=== PATIENT | male | born 1960 | race Caucasian/White ===

== ENCOUNTER → 2017-05-06 | Outpatient (CLI) | payer BC ==
[~2017-05-06] MED LIST: ATOR-24 PO; OXYC-57 PO
== END | disposition home or self-care (01) ==
LOC: C.LABSPEC 14:39
PROVIDERS: ATTEND Internal Medicine
DX: Z12.11 Encounter for screening for malignant neoplasm of colon (principal)

== ENCOUNTER → 2017-06-14 | Day surgery (SDC) | payer BC ==
[2017-05-25 08:06] VITALS: BMI 28.0
--- NOTE | 2017-05-25 08:28 | PAT Medication Instructions ---
Service Date May 25, 2017. Current Home Medication List Atorvastatin (Lipitor), 40 MG PO QAM Medication Instructions For Your Scheduled Surgery - Take the following medications the morning of surgery with a sip of water: Atorvastatin (Lipitor), 40 MG PO QAM If you have any questions please call us at [phone] or [phone] or [phone]
--- NOTE | 2017-05-25 08:59 | DIAGNOSTIC IMAGING REPORT ---
CHEST 2 VIEWS ROUTINE HISTORY: Preop. COMPARISON: None. FINDINGS: The lungs are clear. Cardiac silhouette is normal in size. No pleural effusions. No pneumothorax. IMPRESSION: No acute process. Electronically signed by: Ramírez Ventura M.D. 05/25/2017 8:57 AM Dictated Date/Time: 05/25/2017 8:56 AM
[~2017-06-14] VITALS: Ht 182.9 cm; Wt 93.3 kg
[~2017-06-14] MED LIST changes: +ATROPINE SULFATE 0.1 MG/ML 5ML SYR IV PRN; +EpHEDrine SULFATE INJ 50 MG/ML AMP IV PRN; +FENTANYL CITRATE INJ 50 MCG/1 ML 2 ML VIAL IV PRN; +HYDROmorphone INJ 1 MG/ML SYR IV PRN; +LACTATED RINGER'S 1000ML 1,000 ML IV SCH; +ONDANSETRON INJ 2 MG/ML 2 ML VIAL IV PRN
[2017-06-14 07:25] VITALS: BP 133/70; PULSE 69; TEMP 36.6; O2SAT 96; Ht 182.9 cm; Wt 93.3 kg
--- NOTE | 2017-06-14 08:55 | History & Physical Bridge Note ---
H&P Re-Evaluation Bridge Note: I have examined the patient, reviewed the History & Physical and in the interval since the performance of the History & Physical I have noted the following changes of clinical significance: No changes noted pt shaved himself inguinal area 3 days ago now has small red pustules, will cancel surgery and plan to reschedule near future once area free of inflammation, pt to call office at bedside
== END | disposition home or self-care (01) ==
LOC: C.ACU 06:59
PROVIDERS: ATTEND Surgery
DX: K40.90 Unilateral inguinal hernia, without obstruction or gangrene, not specified as recurrent (principal); S31.119A Laceration without foreign body of abdominal wall, unspecified quadrant without penetration into peritoneal cavity, initial encounter; W26.8XXA Contact with other sharp object(s), not elsewhere classified, initial encounter; E78.00 Pure hypercholesterolemia, unspecified; M54.2 Cervicalgia; Z53.8 Procedure and treatment not carried out for other reasons

== ENCOUNTER → 2017-06-30 | Day surgery (SDC) | payer BC ==
[2017-06-15 09:18] VITALS: BMI 28.0
[~2017-06-30] VITALS: Ht 182.9 cm; Wt 93.3 kg
[~2017-06-30] MED LIST changes: +BACITRACIN 50000 UNIT VIAL ONE; +BUPIVACAINE 0.5 % 5 MG/1 ML MPF 30ML VIAL ONE; +CEFAZOLIN SOD 1 GM VIAL ONE; +DEXAMETHASONE SOD INJ 4 MG/ML VIAL ONE; +FENTANYL CITRATE INJ 50 MCG/1 ML 2 ML VIAL ONE; +GLYCOPYRROLATE INJ 0.2 MG/ML VIAL ONE; +KETOROLAC TROMETHAMINE 30 MG/ML VIAL ONE; +LIDOCAINE HCL 2% 2 ML VIAL (20MG/ML) ONE; +MIDAZOLAM HCL 1 MG/ML 2ML VIAL ONE; +NEOSTIGMINE METHYLSULFATE 5 MG/5 ML SYR ONE; +ONDANSETRON INJ 2 MG/ML 2 ML VIAL ONE; +OXYCODONE/ACETAMINOPHEN 5-325 TAB PO PRN; +PROPOFOL IV EMULSION 10 MG/ML 20 ML VIAL IV ONE; +ROCURONIUM BROMIDE 10 MG/ML 5 ML VIAL IV ONE; +SODIUM CHLORIDE 0.9% 1000ML 1,000 ML IV SCH
[2017-06-30 05:32] VITALS: BP 125/81; PULSE 75; TEMP 37.1; O2SAT 96; Ht 182.9 cm; Wt 93.3 kg
--- NOTE | 2017-06-30 06:20 | History & Physical Bridge Note ---
H&P Re-Evaluation Bridge Note: I have examined the patient, reviewed the History & Physical and in the interval since the performance of the History & Physical I have noted the following changes of clinical significance: No changes noted pt marked area free od any irritation(pt was cancelled for surgery bonita 2 weeks ago do to fact he had shaved himself 3 days before or time and developed folliculitis, was treated with antibiotics and now all resolve at bedside
--- NOTE | 2017-06-30 06:39 | History and Physical ---
History & Physical Date Jun 30, 2017. History of Present Illness The patient is a 57 year old male with complaints of right groin pain was scheduled for surgery bonita 2 weeks ago and surgery cancelled do to fact pt shaved himself bonita 3 days prior and developed folliculitis that weas rx with po antibiotics, seen in office yesterday and thias am area benign and will proceed with open right ing hernia repair with likely mesh placement no change in history or physical or meds last 2 weeks other than antibiotics given for folliculitis Additional History Hepatic Disease: No Endocrine Disorder: No Kidney Disease: No Hypertension: No Heart Disease: No Bleeding Tendencies: No Infectious Diseases: No Allergies Coded Allergies: No Known Allergies (Unverified , 06/15/17) Home Medications Scheduled Atorvastatin (Lipitor), 40 MG PO QAM Physical Examination Skin: warm/dry Eyes: normal inspection ENT: normal ENT inspection Head: normocephalic Neck: supple, no adenopathy, trachea midline Respiratory/Chest: lungs clear Cardiovascular: regular rate, rhythm Abdomen / GI: normal bowel sounds, + pertinent finding (right inguinal hernia) Back: normal inspection Extremities: normal inspection, normal range of motion Genitourinary - Male: normal testicles Diagnosis symptomatic right ing hernia plan open repair Plan of Treatment open right ing hernia repair with likely mesh placement
--- NOTE | 2017-06-30 08:18 | Discharge Instructions ---
Discharge Instructions Date of Service Jun 30, 2017. Admission Reason for Admission: Right Inguinal Hernia Discharge Discharge Diagnosis / Problem: Right Inguinal Hernia Discharge Goals Goal(s): Decrease discomfort, Improve function Activity Recommendations Activity Limitations: as noted below Lifting Limitations: no more than 10 pounds Exercise/Sports Limitations: until after follow-up appointment May Resume Sexual Activity: after follow-up appointment Shower/Bathe: tomorrow Driving or Machine Use: resume 3 days after discharge . Instructions / Follow-Up Instructions / Follow-Up Please continue to ice surgical incision for the next [address] ice directly onto incision. Please follow-up with nursing for staple removal. Please call the office at to make an appointment if you do not have one already. Please call the office with any questions or concerns. Current Hospital Diet Patient's current hospital diet: Discharge Diet Recommended Diet: Regular Diet Procedures Procedures Performed: Open Right Inguinal Hernia Repair with Prolite Mesh, Excision of Lypoma of Cord Pending Studies Studies pending at discharge: yes List of pending studies: Pathology report. Medical Emergencies . Who to Call and When: Medical Emergencies: If at any time you feel your situation is an emergency, please call 911 immediately. . Non-Emergent Contact Non-Emergency issues call your: Primary Care Provider, Surgeon Call Non-Emergent contact if: temperature is above 101.5, your pain is not controlled, wound has increased drainage, wound has increased redness . "Provider Documentation" section prepared by Precious Cunningham. . VTE Core Measure Inpt VTE Proph given/why not?: SCD's [place] Drug Monitoring Program Search Results: patient reviewed within database, no issues identified
--- NOTE | 2017-06-30 08:24 | [facility] Operative Report ---
Operative Report Operative Date Jun 30, 2017. Pre-Operative Diagnosis Right Inguinal Hernia Post-Operative Diagnosis Indirect and Direct Hernia, Lipoma of Cord Procedure(s) Performed Open Right Inguinal Hernia Repair with Prolite Mesh, Excision of Lipoma of Cord Surgeon Dr. Ramos Ruano [employer] [place] Surgeon(s) Precious Cunningham PA-C Estimated Blood Loss 3ml Findings indirect and direct weakness lipoma cord Specimens Permanent: B. Lipoma of Cord Indications right groin pain Description of Procedure dictated confirmation number [id number] I attest to the content of the Intraoperative Record and any orders documented therein. Any exceptions are noted below.
--- NOTE | 2017-06-30 08:42 | OPERATIVE REPORT ---
DATE OF OPERATION: 06/30/2017 PREOPERATIVE DIAGNOSIS: Right inguinal hernia. POSTOPERATIVE DIAGNOSIS: Right direct and indirect hernia and lipoma of the cord. PROCEDURE: Open repair of right direct and indirect inguinal hernia, excision of lipoma and Marlex mesh reinforcement. SURGEON: Dr. Ruano. COMMISSARY ASSISTANT: Precious Cunningham PA-C. SUMMARY: The patient was brought into the operating room under general anesthesia. Right lower quadrant was prepped with Betadine scrubbing solution and properly draped. Systemic antibiotics were given. 0.5% Marcaine without epinephrine was used to infiltrate 2 fingerbreadths medial anterior to the iliac crest and local wheal was raised and went subfascially external oblique. An incision was made parallel to the inguinal ligament, deepened through subcutaneous tissue onto the external oblique. Some subcutaneous vessels were ligated with 2-0 silk. More local was used underneath the external oblique which was incised and opened along the course of its fibers. The nerve which had multiple branches were elevated superiorly on top of hemostats. At this point, the cord and its structures were elevated from the floor and placed on a Caren drain. The patient had a significant amount of fatty tissue in the area. As we freed it up, we were able to identify a small indirect hernia that extended about 4-5 cm into the canal. We opened this, placed a finger and there were no contents, then we resected by ligating the base with 3-0 silk. The patient had a very large lipoma of the cord, which we freed it up from the cord all the way to its base, ligating with 2-0 silk. Another smaller lipoma was similarly excised. At this point, we were able then to visualize the direct defect which we basically oversewed some loose transversalis fascia to get the defect out of the way and then we brought in a sheet of Marlex mesh and probably accommodated the suture to the symphysis pubis, conjoined tendon superiorly. We had the mesh quite lax, the shelving portion the inguinal ligament anteriorly and then we reconstructed the internal ring. We placed the nerve along the cord. The area was checked for hemostasis and appeared satisfactory. We then closed the external oblique on top of the fascia and the repair with 3-0 interrupted silk suture, paying attention that all the sutures were underneath the fascia. Subcutaneous closed with 2-0 Vicryl and víctor for skin edges. Dressing was applied. The procedure was tolerated well by the patient and was taken to recovery room in good condition. I attest to the content of the Intraoperative Record and any orders documented therein. Any exception s are noted below.
--- NOTE | 2017-06-30 08:47 | Anesthesiology Progress Note ---
Anesthesia Post Op Note Date & Time Jun 30, 2017 at 08:47 Vital Signs Pain Intensity: 2 Vital Signs Past 12 Hours Date Time Temp Pulse Resp B/P (MAP) Pulse Ox O2 Delivery O2 Flow Rate FiO2 06/30/17 08:36 59 16 06/30/17 08:36 59 16 96 06/30/17 08:35 114/73 06/30/17 08:31 59 14 06/30/17 08:31 60 14 103/49 100 06/30/17 08:30 60 14 100 06/30/17 08:30 59 14 06/30/17 08:25 59 15 06/30/17 08:25 59 15 119/73 100 06/30/17 08:21 99/65 06/30/17 08:20 57 20 06/30/17 08:20 57 20 100 06/30/17 08:15 54 18 06/30/17 08:15 36.2 56 14 132/83 100 Oxymask 10 06/30/17 08:15 53 18 132/83 100 06/30/17 05:32 37.1 75 18 125/81 (96) 96 Room Air Notes Mental Status: alert / awake / arousable, participated in evaluation Pt Amnestic to Procedure: Yes Nausea / Vomiting: adequately controlled Pain: adequately controlled Airway Patency, RR, SpO2: stable & adequate BP & HR: stable & adequate Hydration State: stable & adequate Anesthetic Complications: no major complications apparent
[2017-06-30 09:00] VITALS: BP 114/75; PULSE 64; TEMP 36.9; O2SAT 98
[2017-06-30 09:30] VITALS: BP 124/72; PULSE 66; TEMP 37; O2SAT 98
[2017-06-30 10:10] VITALS: BP 133/74; PULSE 69; TEMP 36.6; O2SAT 95
== END | disposition home or self-care (01) ==
LOC: C.ACU 05:11
PROVIDERS: ATTEND Surgery
DX: K40.90 Unilateral inguinal hernia, without obstruction or gangrene, not specified as recurrent (principal); D17.6 Benign lipomatous neoplasm of spermatic cord

== ENCOUNTER → 2018-05-23 | Outpatient (CLI) | payer BC ==
[~2018-05-23] MED LIST changes: -ATROPINE SULFATE 0.1 MG/ML 5ML SYR IV PRN; -BACITRACIN 50000 UNIT VIAL ONE; -BUPIVACAINE 0.5 % 5 MG/1 ML MPF 30ML VIAL ONE; -CEFAZOLIN SOD 1 GM VIAL ONE; -DEXAMETHASONE SOD INJ 4 MG/ML VIAL ONE; -EpHEDrine SULFATE INJ 50 MG/ML AMP IV PRN; -FENTANYL CITRATE INJ 50 MCG/1 ML 2 ML VIAL IV PRN; -FENTANYL CITRATE INJ 50 MCG/1 ML 2 ML VIAL ONE; -GLYCOPYRROLATE INJ 0.2 MG/ML VIAL ONE; -HYDROmorphone INJ 1 MG/ML SYR IV PRN; -KETOROLAC TROMETHAMINE 30 MG/ML VIAL ONE; -LACTATED RINGER'S 1000ML 1,000 ML IV SCH; -LIDOCAINE HCL 2% 2 ML VIAL (20MG/ML) ONE; -MIDAZOLAM HCL 1 MG/ML 2ML VIAL ONE; -NEOSTIGMINE METHYLSULFATE 5 MG/5 ML SYR ONE; -ONDANSETRON INJ 2 MG/ML 2 ML VIAL IV PRN; -ONDANSETRON INJ 2 MG/ML 2 ML VIAL ONE; -OXYC-57 PO; -OXYCODONE/ACETAMINOPHEN 5-325 TAB PO PRN; -PROPOFOL IV EMULSION 10 MG/ML 20 ML VIAL IV ONE; -ROCURONIUM BROMIDE 10 MG/ML 5 ML VIAL IV ONE; -SODIUM CHLORIDE 0.9% 1000ML 1,000 ML IV SCH
[2018-05-29 18:13] LABS: FECAL OCCULT BLOOD #1 NEGATIVE (NEGATIVE); FECAL OCCULT BLOOD #2 NEGATIVE (NEGATIVE); FECAL OCCULT BLOOD #3 NEGATIVE (NEGATIVE)
== END | disposition home or self-care (01) ==
LOC: C.LABSPEC 17:18
PROVIDERS: ATTEND Internal Medicine
DX: Z12.11 Encounter for screening for malignant neoplasm of colon (principal)

== ENCOUNTER 2021-01-28 16:31 | Inpatient (IN) ==
--- OUTSIDE RECORDS SUMMARY | 2021-01-28 16:34 | External Medical Summary | Continuity of Care Document ---
:1960 Author Name Neda Foy Address Unavailable Unavailable , Care Team Providers Name Role Phone Binud Foy Unavailable [email or web address] Unavailable Unavailable Unavailable Unavailable Unavailable Assessments Assessed Problems:Unilateral inguinal hernia without obstruction or gangrene Problems Hypercholesterolemia (272.0) (E78.00) Chronic neck pain (723.1) (M54.2) Skin erythema (695.9) (L53.9) Unilateral inguinal hernia without obstruction or gangrene ( 550.90) (K40.90) Allergies and Adverse Reactions No Known Drug Allergies (Allergy) Medications Lipitor 40 MG Oral Tablet; TAKE 1 TABLET DAILY. Start: 17-May-2017 Refills: 0 Procedures History of inguinal hernia repair Status : Completed History of inguinal hernia repair Status : Completed 30-Jun-2017 0:00 Immunizations Immunizations not documented Family History Mother Family history of malignant neoplasm of breast (V16.3) (Z80. 3) Status: Active Social History - Smoking Status Never smoked tobacco Plan of Treatment Planned Observations Planned Goals not documented Results No Known Results Results not documented Encounters Appointment; Ramos Ruano M.D. 08-Aug-2017 13:10 Encounter Diagnosis: Problem not documented
--- OUTSIDE RECORDS SUMMARY | 2021-01-28 16:34 | External Medical Summary | Continuity of Care Document ---
:1960 Author Name Neda Foy Address Unavailable Unavailable , Care Team Providers Name Role Phone Bindu Foy Unavailable [email or web address] Unavailable Unavailable Unavailable Unavailable Unavailable Assessments Assessed Problems:Unilateral inguinal hernia without obstruction or gangrene Problems Chronic neck pain (723.1) (M54.2) Hypercholesterolemia (272.0) (E78.00) Unilateral inguinal hernia without obstruction or gangrene ( 550.90) (K40.90) Skin erythema (695.9) (L53.9) Allergies and Adverse Reactions No Known Drug [...]
[2021-01-28] MEDS ORDERED: SODIUM CHLORIDE 0.9% 1000ML 2,000 ML IV ONE (19:02)
--- NOTE | 2021-01-28 19:07 | Emergency Department Note ---
Impression & Plan Sepsis, Acute Lyme disease, Hypoxia, Viral URI with cough ED Provider Note NAME: UTE BURCH AGE: 60 SEX: M : 1960 ARRIVES VIA: Walk-In INFORMANT: Patient ED PROVIDER(S): Duc Flood DO CHIEF COMPLAINT: fever and cough HPI: Patient is a 60-year-old male with a past medical history of hyperlipidemia that presents to the ER for fevers which have been present since this past Tuesday. They have been a high as 102. He notes with that he has felt weak and rundown. He feels very tired. He denies any headache or change in vision. He does feel a little nasally congested. No chest pain and or shortness of breath. He admits to a persistent cough. No belly pain, nausea, vomiting or diarrhea. No dysuria, urgency, or frequency. The notes that he looks short of breath but he notes that he feels very tired when he is up and around doing anything. Has been taking Tylenol to help with the fevers. Fevers have been persistent for the past 4 days. Prior to this he had symptoms around January 09 which lasted for couple days and then resolved. Patient did also have a recent tick bite. ROS: See above HPI for pertinent positives & negatives. A total of 10 systems reviewed and were otherwise negative. PAST MEDICAL HISTORY:See Below PAST SURGICAL HISTORY:See Below FAMILY HISTORY:See Below SOCIAL HISTORY:See Below HOME MEDICATIONS:See Below ALLERGIES:See Below VITALS:See Below PHYSICAL EXAMINATION: GENERAL: Sitting up in bed, alert, well appearing, well nourished, no distress, non-toxic EYE EXAM: normal conjunctiva. OROPHARYNX: mask in place NECK: supple, no nuchal rigidity, no adenopathy, non-tender LUNGS: Clear to auscultation. Normal chest wall mechanics HEART: Tachycardic, S1 normal and S2 normal ABDOMEN: abdomen soft, non-tender, normo-active bowel sounds, no masses, no rebound or guarding. BACK: Back is symmetrical on inspection and there is no deformity, no midline tenderness, no CVA tenderness. SKIN: no rashes and no bruising UPPER EXTREMITIES: upper extremities are grossly normal. LOWER EXTREMITIES: No pitting edema. Calves are good bilateral NEURO EXAM: Normal sensorium, cranial nerves II-XII grossly intact, normal speech, no gross weakness of arms, no gross weakness of legs. MEDICAL DECISION MAKING: Patient is a 60-year-old male who presents the ER for fever, myalgias arth ralgias cough some mild shortness of breath. IV was established blood work was obtained. Labs showed no significant leukocytosis or anemia. D-dimer was elevated at 1500. BMP with mild hyponatremia. LFTs with slightly elevated AST. T bili slightly elevated 1.3. Lipase was normal. Procalcitonin was normal. UA was contaminated. Lyme IgM was positive. He was given 2 L IV fluids. He was given IV Rocephin. He was monitored in the ER. Pulse ox was fairly persistently 90%. With this the fever and persistent tachycardia I discussed case with hospitalist for further evaluation and he was admitted. Triage Nursing notes reviewed. Limited review of prior medical records performed Vital Signs: reviewed and remarkable for tachy and HTN Differential diagnosis: Differential diagnosis includes etiologies such as sepsis, UTI, pneumonia, me tabolic, electrolyte abnormalities, cardiac sources, intracerebral event, toxicologic, neurological, as well as others were entertained. ER treatment provided: See below Diagnostics interpreted by me: ECG: Sinus tachycardia rate 105 Normal axis No PVCs QTC 417 Cardiac Monitoring: An order was placed for continuous cardiac monitoring. The monitor shows a rate of 115 with sinus rhythm. Laboratory studies: As stated above and show below. Imaging studies: CT angio chest was unremarkable Portable AP upright 1 view the chest was unremarkable Consultation(s): This is Dr. Андрей Bishop for further evaluation Procedures: none Critical Care: None Past Med/Surg History Medical History (Updated 01/28/21 @ 23:37 by Duc Flood DO) BPH w urinary obs/LUTS Hyperlipidemia Social History Smoking Status: Never smoker Feels Safe at Home: Yes Allergies Allergies Allergy/AdvReac Type Severity Reaction Status Date / Time No Known Allergies Allergy Verified 01/28/21 20:28 Home Meds Home Medications Medication Instructions Recorded Confirmed atorvastatin 40 mg PO HS 01/28/21 01/28/21 ferrous gluconate 324 mg PO HS 01/28/21 01/28/21 tamsulosin 0.4 mg PO HS 01/28/21 01/28/21 Results & Data (ED) Vital Signs Vital Signs - 24 hr 01/28/21 16:35 01/28/21 19:05 01/28/21 19:18 Temperature 36.5 C Temperature Source Temporal Artery Scan Pulse Rate 111 H 103 H Pulse Rate from SpO2 Sensor 102 H Pulse Rhythm Regular Respiratory Rate 19 23 Respiratory Effort / Characteristics Non-Labored Spontaneous Respiratory Depth Normal Respiratory Pattern Regular Blood Pressure 141/75 H 144/92 H Blood Pressure Mean 97 109 Pulse Oximetry 96 93 94 Oxygen Delivery Method Room Air Room Air Sepsis Recent Fever Within 48 Hours Yes Sepsis New/Unexplained Change in Mental Status No Sepsis Action Taken by Nursing No Action Required 01/28/21 20:00 01/28/21 21:00 01/28/21 22:00 Temperature Temperature Source Pulse Rate 103 H 101 H 100 H Pulse Rate from SpO2 Sensor 104 H 102 H 100 H Pulse Rhythm Respiratory Rate 32 H 40 H 39 H Respiratory Effort / Characteristics Respiratory Depth Respiratory Pattern Blood Pressure 141/86 H 128/84 133/81 Blood Pressure Mean 104 98 98 Pulse Oximetry 95 93 92 Oxygen Delivery Method Sepsis Recent Fever Within 48 Hours Sepsis New/Unexplained Change in Mental Status Sepsis Action Taken by Nursing 01/28/21 23:00 Temperature Temperature Source Pulse Rate 91 H Pulse Rate from SpO2 Sensor 92 H Pulse Rhythm Respiratory Rate 28 H Respiratory Effort / Characteristics Respiratory Depth Respiratory Pattern Blood Pressure 127/78 Blood Pressure Mean 94 Pulse Oximetry 92 Oxygen Delivery Method Room Air Sepsis Recent Fever Within 48 Hours Sepsis New/Unexplained Change in Mental Status Sepsis Action Taken by Nursing Laboratory Data Result diagrams: 01/28/21 19:09 01/28/21 19:09 Lab Results 01/28/21 01/28/21 01/28/21 Range/Units 19:09 19:09 19:09 WBC 7.18 (4.8-10.8) K/uL RBC 4.94 (4.7-6.1) M/uL Hgb 13.9 L (14.0-18.0) g/dL Hct 40.6 L (42-52) % MCV 82.2 (80-100) fL MCH 28.1 (25-34) pg MCHC 34.2 (32-36) g/dL RDW Std Deviation 41.2 (36.4-46.3) fL RDW Coeff of Elaine 13.6 (11.5-14.5) % Plt Count 113 L (130-400) K/uL MPV 10.7 H (7.4-10.4) fL Immature Gran % (Auto) 0.3 % Neut % (Auto) 61.8 % Lymph % (Auto) 26.3 % [place] % (Auto) 10.9 % Eos % (Auto) 0.0 % Baso % (Auto) 0.7 % Neut # (Auto) 4.44 (1.4-6.5) K/uL Lymph # (Auto) 1.89 (1.2-3.4) K/uL [place] # (Auto) 0.78 H (0.11-0.59) K/uL Eos # (Auto) 0.00 (0-0.5) K/uL Baso # (Auto) 0.05 (0-0.2) K/uL Immature Gran # (Auto) 0.02 (0.00-0.02) K/uL D-Dimer 1470 H* (0-500) ug/L FEU Sodium 132 L (136-145) mmol/L Potassium 3.6 (3.5-5.1) mmol/L Chloride 100 (98-107) mmol/L Carbon Dioxide 25 (21-32) mmol/L Anion Gap 8.0 (3-11) BUN 15 (7-18) mg/dl Creatinine 0.98 (0.6-1.4) mg/dl Est Cr Clr Drug Dosing 97.2 ml/min Est GFR ( Amer) 97.4 Est GFR (Non-Af Amer) 84.1 BUN/Creatinine Ratio 15.3 (10-20) Glucose 127 H (70-99) mg/dl Lactate (0.4-2.0) mmol/L Calcium 8.5 (8.5-10.1) mg/dl Total Bilirubin 1.3 H (0.2-1) mg/dl AST 83 H (15-37) U/L ALT 73 (12-78) U/L Alkaline Phosphatase 131 H (45-117) U/L Troponin I < 0.015 (0-0.045) ng/ml Total Protein 7.5 (6.4-8.2) gm/dl Albumin 3.2 L (3.4-5.0) gm/dl Globulin 4.3 H (2.5-4.0) gm/dl Albumin/Globulin Ratio 0.7 L (0.9-2) Lipase 136 (73-393) U/L Procalcitonin (0-0.5) ng/ml Urine Color Urine Appearance (Clear) Urine pH (4.5-7.5) Ur Specific Abrams (1.000-1.030) Urine Protein (Negative) Urine Glucose (UA) (Negative) Urine Ketones (Negative) Urine Blood (Negative) Urine Nitrite (Negative) Urine Bilirubin (Negative) Urine Urobilinogen (Negative) Ur Leukocyte Esterase (Negative) Urine WBC (Auto) (0-5) /hpf Urine RBC (Auto) (0-4) /hpf U Hyaline Cast (Auto) (0-5) /lpf U Epithel Cells (Auto) (0-5) /lpf Urine Bacteria (Auto) (Negative) Lyme Disease IgG Ab (Negative) Lyme Disease IgM Ab (Negative) COVID-19 Eval Order SARS-CoV-2 (PCR) (Negative) Influenza Type A (PCR) (Neg) Influenza Type B (PCR) (Neg) RSV (RT-PCR) (Neg) 01/28/21 01/28/21 01/28/21 Range/Units 19:09 19:09 19:09 WBC (4.8-10.8) K/uL RBC (4.7-6.1) M/uL Hgb (14.0-18.0) g/dL Hct (42-52) % MCV (80-100) fL MCH (25-34) pg MCHC (32-36) g/dL RDW Std Deviation (36.4-46.3) fL RDW Coeff of Elaine (11.5-14.5) % Plt Count (130-400) K/uL MPV (7.4-10.4) fL Immature Gran % (Auto) % Neut % (Auto) % Lymph % (Auto) % [place] % (Auto) % Eos % (Auto) % Baso % (Auto) % Neut # (Auto) (1.4-6.5) K/uL Lymph # (Auto) (1.2-3.4) K/uL [place] # (Auto) (0.11-0.59) K/uL Eos # (Auto) (0-0.5) K/uL Baso # (Auto) (0-0.2) K/uL Immature Gran # (Auto) (0.00-0.02) K/uL D-Dimer (0-500) ug/L FEU Sodium (136-145) mmol/L Potassium (3.5-5.1) mmol/L Chloride (98-107) mmol/L Carbon Dioxide (21-32) mmol/L Anion Gap (3-11) BUN (7-18) mg/dl Creatinine (0.6-1.4) mg/dl Est Cr Clr Drug Dosing ml/min Est GFR ( Amer) Est GFR (Non-Af Amer) BUN/Creatinine Ratio (10-20) Glucose (70-99) mg/dl Lactate 1.5 (0.4-2.0) mmol/L Calcium (8.5-10.1) mg/dl Total Bilirubin (0.2-1) mg/dl AST (15-37) U/L ALT (12-78) U/L Alkaline Phosphatase (45-117) U/L Troponin I (0-0.045) ng/ml Total Protein (6.4-8.2) gm/dl Albumin (3.4-5.0) gm/dl Globulin (2.5-4.0) gm/dl Albumin/Globulin Ratio (0.9-2) Lipase (73-393) U/L Procalcitonin 0.40 (0-0.5) ng/ml Urine Color Dark Yellow Urine Appearance Clear (Clear) Urine pH 6.0 (4.5-7.5) Ur Specific Abrams 1.023 (1.000-1.030) Urine Protein 2+ H (Negative) Urine Glucose (UA) Negative (Negative) Urine Ketones Negative (Negative) Urine Blood 3+ H (Negative) Urine Nitrite Negative (Negative) Urine Bilirubin 1+ H (Negative) Urine Urobilinogen Positive H (Negative) Ur Leukocyte Esterase Negative (Negative) Urine WBC (Auto) 1-5 (0-5) /hpf Urine RBC (Auto) 5-10 H (0-4) /hpf U Hyaline Cast (Auto) 1-5 (0-5) /lpf U Epithel Cells (Auto) 10-20 H (0-5) /lpf Urine Bacteria (Auto) Negative (Negative) Lyme Disease IgG Ab (Negative) Lyme Disease IgM Ab (Negative) COVID-19 Eval Order SARS-CoV-2 (PCR) (Negative) Influenza Type A (PCR) (Neg) Influenza Type B (PCR) (Neg) RSV (RT-PCR) (Neg) 01/28/21 01/28/21 01/28/21 Range/Units 19:09 19:15 19:15 WBC (4.8-10.8) K/uL RBC (4.7-6.1) M/uL Hgb (14.0-18.0) g/dL Hct (42-52) % MCV (80-100) fL MCH (25-34) pg MCHC (32-36) g/dL RDW Std Deviation (36.4-46.3) fL RDW Coeff of Elaine (11.5-14.5) % Plt Count (130-400) K/uL MPV (7.4-10.4) fL Immature Gran % (Auto) % Neut % (Auto) % Lymph % (Auto) % [place] % (Auto) % Eos % (Auto) % Baso % (Auto) % Neut # (Auto) (1.4-6.5) K/uL Lymph # (Auto) (1.2-3.4) K/uL [place] # (Auto) (0.11-0.59) K/uL Eos # (Auto) (0-0.5) K/uL Baso # (Auto) (0-0.2) K/uL Immature Gran # (Auto) (0.00-0.02) K/uL D-Dimer (0-500) ug/L FEU Sodium (136-145) mmol/L Potassium (3.5-5.1) mmol/L Chloride (98-107) mmol/L Carbon Dioxide (21-32) mmol/L Anion Gap (3-11) BUN (7-18) mg/dl Creatinine (0.6-1.4) mg/dl Est Cr Clr Drug Dosing ml/min Est GFR ( Amer) Est GFR (Non-Af Amer) BUN/Creatinine Ratio (10-20) Glucose (70-99) mg/dl Lactate (0.4-2.0) mmol/L Calcium (8.5-10.1) mg/dl Total Bilirubin (0.2-1) mg/dl AST (15-37) U/L ALT (12-78) U/L Alkaline Phosphatase (45-117) U/L Troponin I (0-0.045) ng/ml Total Protein (6.4-8.2) gm/dl Albumin (3.4-5.0) gm/dl Globulin (2.5-4.0) gm/dl Albumin/Globulin Ratio (0.9-2) Lipase (73-393) U/L Procalcitonin (0-0.5) ng/ml Urine Color Urine Appearance (Clear) Urine pH (4.5-7.5) Ur Specific Abrams (1.000-1.030) Urine Protein (Negative) Urine Glucose (UA) (Negative) Urine Ketones (Negative) Urine Blood (Negative) Urine Nitrite (Negative) Urine Bilirubin (Negative) Urine Urobilinogen (Negative) Ur Leukocyte Esterase (Negative) Urine WBC (Auto) (0-5) /hpf Urine RBC (Auto) (0-4) /hpf U Hyaline Cast (Auto) (0-5) /lpf U Epithel Cells (Auto) (0-5) /lpf Urine Bacteria (Auto) (Negative) Lyme Disease IgG Ab Positive A (Negative) Lyme Disease IgM Ab Positive A (Negative) COVID-19 Eval Order CovFluRsv at [facility] SARS-CoV-2 (PCR) NEGATIVE (Negative) Influenza Type A (PCR) Negative (Neg) Influenza Type B (PCR) Negative (Neg) RSV (RT-PCR) Negative (Neg) Administered Medications Discontinued Medications Acetaminophen (Acetaminophen 325 Mg Tab) 650 mg PO NOW STA Stop: 01/28/21 21:14 Last Admin: 01/28/21 21:56 Dose: 650 mg Documented by: [id number] Sodium Chloride (Nss 1000ml) 2,000 mls @ 999 mls/hr IV .Q2H1M ONE Stop: 01/28/21 21:02 Last Infusion: 01/28/21 21:22 Dose: 0 mls/hr Documented by: [id number] Admin: 01/28/21 19:18 Dose: 999 mls/hr Documented by: [id number] Dexamethasone 6 mg/ Syringe 1.5 mls @ 1 mls/min IV ONE ONE Stop: 01/28/21 21:14 Last Admin: 01/28/21 21:57 Dose: 1 mls/min Documented by: [id number] Ceftriaxone Sodium (Rocephin) 1,000 mg in 50 mls @ 100 mls/hr IV NOW STA Stop: 01/28/21 21:42 Last Infusion: 01/28/21 22:29 Dose: 0 mls/hr Documented by: [id number] Admin: 01/28/21 21:57 Dose: 100 mls/hr Documented by: [id number] Ceftriaxone Sodium (Rocephin) 1,000 mg in 50 mls @ 100 mls/hr IV NOW STA Stop: 01/28/21 22:31 Last Infusion: 01/28/21 22:58 Dose: 0 mls/hr Documented by: [id number] Admin: 01/28/21 22:29 Dose: 100 mls/hr Documented by: [id number] Ioversol (Optiray 320 125ml) 119 ml IV ONCE ONE Stop: 01/28/21 20:07 Last Admin: 01/28/21 20:06 Dose: 119 ml Documented by: [id number] Tamsulosin HCl (Tamsulosin Hcl 0.4 Mg Cap) 0.4 mg PO NOW STA Stop: 01/28/21 22:08 Last Admin: 01/28/21 22:27 Dose: 0.4 mg Documented by: [id number] Imaging Data Radiologist's Impression: Chest X-Ray 01/28/21 18:54 XR chest 1V portable CLINICAL HISTORY: Atypical chest pain. COMPARISON STUDY: Chest radiograph May 25, 2017. FINDINGS: Lung volumes are normal. There is no pneumothorax or pleural effusion. There is no consolidation or evidence for pulmonary edema. There is mild cardiomegaly. IMPRESSION: 1. No acute cardiopulmonary findings. 2. Mild cardiomegaly. ACT 112: Negative or not required by law. Electronically signed by: Stefano Vega M.D. 01/28/2021 7:30 PM Chest CTA 01/28/21 19:53 CT ANGIOGRAPHY OF THE CHEST, PULMONARY EMBOLUS PROTOCOL CLINICAL HISTORY: +dd sob and fever COMPARISON STUDY: Chest radiograph May 25, 2017 and January 28, 2021. TECHNIQUE: Following IV administration of 119 mL of Optiray-320, helical axial images of the chest were obtained utilizing the pulmonary embolus protocol. Max imal intensity projections and sagittal and coronal reformats were viewed on an independent 3D workstation. IV contrast was administered without complication. Automated exposure control was utilized for the study. A dose lowering technique was utilized adhering to the principles of ALARA. CT DOSE: 544.59 mGy.cm FINDINGS: No pulmonary emboli are identified. There is no thoracic aortic dissection. The heart is mildly enlarged. Trace bilateral pleural effusions are noted. There is no pneumothorax. No enlarged axillary, mediastinal or hilar lymph nodes are present. Note is made of a low attenuation 2.8 cm left lobe thyroid nodule. Central airways are patent. No consolidation is identified to suggest pneumonia. Minimal subpleural groundglass opacities reflect atelectasis. There is subtle interlobular septal thickening. A few hepatic lesions favor cysts. Mild splenomegaly is partially imaged. IMPRESSION: 1. No pulmonary emboli identified. 2. Mild cardiomegaly with trace bilateral pleural effusions and minimal interstitial pulmonary edema. 3. Mild splenomegaly, partially imaged on this exam. ACT 112: Negative or not required by law. Electronically signed by: Stefano Vega M.D. 01/28/2021 8:25 PM Discharge Plan Visit Data Chief Complaint: Illness Stated Complaint: FEVER LAST 4 DAYS, COUGH, BODY ACHE ED Provider: Duc Flood Discharge Problem: Sepsis, Acute Lyme disease, Hypoxia, Viral URI with cough Discharge Instructions Interventions: ED Discharge Assessment Last Done: 01/28/21 23:21 Forms Stand Al[facility] Prescriptions Prescriptions: No Action atorvastatin 40 mg tablet 40 mg PO HS RF: 0 tamsulosin 0.4 mg capsule 0.4 mg PO HS RF: 0 ferrous gluconate 324 mg (37.5 mg iron) tablet 324 mg PO HS RF: 0 Discharge Problem: Sepsis Qualifiers: Sepsis type: sepsis due to unspecified organism Sepsis acute organ dysfunction status: unspecified Qualified Code(s): A41.9 - Sepsis, unspecified organism
[2021-01-28 19:24] LABS: Appearance Urine Clear (Clear); Bacteria Urine Automated Negative (Negative); Blood Urine 3+ (Negative); Color Urine Dark Yellow; Glucose Urine UA Negative (Negative); Ketones Urine Negative (Negative); Leukocyte Esterase Urine Negative (Negative); Nitrite Urine Negative (Negative); Protein Urine 2+ (Negative); Specific Gravity Urine 1.023 (1.000-1.030); Urobilinogen Urine Positive (Negative)
[2021-01-28 19:25] LABS: Bilirubin Urine 1+ (Negative)
[2021-01-28 19:29] LABS: Basophils # (auto) 0.05 K/uL (0-0.2); Basophils % (auto) 0.7 %; Hematocrit (blood only) 40.6 % (42-52); Hemoglobin 13.9 g/dL (14.0-18.0); Immature Granulocytes # (auto) 0.02 K/uL (0.00-0.02); Immature Granulocytes % (auto) 0.3 %; Lymphocytes # (auto) 1.89 K/uL (1.2-3.4); Lymphocytes % (auto) 26.3 %; Mean Corpuscular Hemoglobin 28.1 pg (25-34); Mean Corpuscular Hgb Conc 34.2 g/dL (32-36); Mean Corpuscular Volume 82.2 fL (80-100); Mean Platelet Volume 10.7 fL (7.4-10.4); Monocytes # (auto) 0.78 K/uL (0.11-0.59); Monocytes % (auto) 10.9 %; Neutrophils # (auto) 4.44 K/uL (1.4-6.5); Neutrophils % (auto) 61.8 %; Platelet Count 113 K/uL (130-400); RDW Coefficient of Variation 13.6 % (11.5-14.5); RDW Standard Deviation 41.2 fL (36.4-46.3); Red Blood Count 4.94 M/uL (4.7-6.1); White Blood Count 7.18 K/uL (4.8-10.8)
--- NOTE | 2021-01-28 19:32 | XRay Report ---
XR chest 1V portable CLINICAL HISTORY: Atypical chest pain. COMPARISON STUDY: Chest radiograph May 25, 2017. FINDINGS: Lung volumes are normal. There is no pneumothorax or pleural effusion. There is no consolid ation or evidence for pulmonary edema. There is mild cardiomegaly. IMPRESSION: 1. No acute cardiopulmonary findings. 2. Mild cardiomegaly. ACT 112: Negative or not required by law. Electronically signed by: Stefano Vega M.D. 01/28/2021 7:30 PM
[2021-01-28 19:39] LABS: Alanine Aminotransferase 73 U/L (12-78); Albumin Level 3.2 gm/dl (3.4-5.0); Aspartate Aminotransferase 83 U/L (15-37); BUN Creatinine Ratio 15.3 (10-20); Blood Urea Nitrogen 15 mg/dl (7-18); Calcium 8.5 mg/dl (8.5-10.1); Carbon Dioxide 25 mmol/L (21-32); Chloride 100 mmol/L (98-107); Creatinine Clr Calc Pharmacy 97.2 ml/min; Est GFR (African American) 97.4; Est GFR (Non-African American) 84.1; Glucose 127 mg/dl (70-99); Lipase 136 U/L (73-393); Potassium 3.6 mmol/L (3.5-5.1); Sodium 132 mmol/L (136-145)
[2021-01-28 19:44] LABS: Albumin Globulin Ratio 0.7 (0.9-2); Alkaline Phosphatase 131 U/L (45-117); Bilirubin,Total 1.3 mg/dl (0.2-1); Globulin 4.3 gm/dl (2.5-4.0); Total Protein 7.5 gm/dl (6.4-8.2); Troponin I < 0.015 ng/ml (0-0.045)
[2021-01-28 19:48] LABS: D Dimer 1470 ug/L FEU (0-500)
[2021-01-28] MEDS ORDERED: OPTIRAY 320 125ml IV ONE (20:06)
[2021-01-28 20:10] LABS: Influenza A virus by PCR Negative (Neg); Influenza B virus by PCR Negative (Neg); RSV by PCR Negative (Neg); SARS CoV2 RNA(COVID-19) InHosp NEGATIVE (Negative)
--- NOTE | 2021-01-28 20:26 | CT Scan Report ---
CT ANGIOGRAPHY OF THE CHEST, PULMONARY EMBOLUS PROTOCOL CLINICAL HISTORY: +dd sob and fever COMPARISON STUDY: Chest radiograph May 25, 2017 and January 28, 2021. TECHNIQUE: Following IV administration of 119 mL of Optiray-320, helical axial images of the chest we re obtained utilizing the pulmonary embolus protocol. Maximal intensity projections and sagittal and coronal reformats were viewed on an independent 3D workstation. IV contrast was administered withou t complication. Automated exposure control was utilized for the study. A dose lowering technique wa s utilized adhering to the principles of ALARA. CT DOSE: 544.59 mGy.cm FINDINGS: No pulmonary emboli are identified. There is no thoracic aortic dissection. The heart is m ildly enlarged. Trace bilateral pleural effusions are noted. There is no pneumothorax. No enlarged ax illary, mediastinal or hilar lymph nodes are present. Note is made of a low attenuation 2.8 cm left l obe thyroid nodule. Central airways are patent. No consolidation is identified to suggest pneumonia. Minimal subpleural groundglass opacities reflect atelectasis. There is subtle interlobular septal thi ckening. A few hepatic lesions favor cysts. Mild splenomegaly is partially imaged. IMPRESSION: 1. No pulmonary emboli identified. 2. Mild cardiomegaly with trace bilateral pleural effusions and minimal interstitial pulmonary edema. 3. Mild splenomegaly, partially imaged on this exam. ACT 112: Negative or not required by law. Electronically signed by: Stefano Vega M.D. 01/28/2021 8:25 PM
[2021-01-28] MEDS ORDERED: dexAMETHasone 6 MG in SYRINGE 0 ML IV ONE (21:13)
[2021-01-28] MEDS ORDERED: ACETAMINOPHEN 325 MG TAB PO STA (21:13)
[2021-01-28] MEDS ORDERED: cefTRIAXone SODIUM 1,000 MG/50 ML BAG IV STA ×2 (21:13→22:02)
[2021-01-28 22:05] LABS: Lyme Ab IgM w/WB Rflx Positive (Negative)
[2021-01-28 22:06] LABS: Lyme Ab IgG w/WB Rflx Positive (Negative)
--- NOTE | 2021-01-28 22:06 | History & Physical Report ---
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 Present on Admission?: Yes (2) BPH w urinary obs/LUTS: Continue tamsulosin 0.4 mg p.o. bedtime. We will follow urinalysis urine culture and sensitivity Present on Admission?: Yes (3) Hyperlipidemia: Continue atorvastatin Present on Admission?: Yes (4) Transaminitis: AST 83, total bilirubin 1.3, albumin 3.2 Present on Admission?: Yes (5) Thrombocytopenia: Platelets 113 upon admission Present on Admission?: Yes (6) Elevated d-dimer: CT angiography negative for PE Present on Admission?: Yes (7) Bronchitis: Placed on ceftriaxone 2 g IV daily, levofloxacin 500 mg IV daily. Duonebs every 4 hours while awake and every 2 hours when necessary. Present on Admission?: Yes (8) Splenomegaly: Monitor platelet levels Present on Admission?: Yes History of Present Illness Chief Complaint: The patient presents to the emergency department with temperature over the past 4 days, dyspnea on exertion, and generalized fatigue Primary Care Provider: Adair Kolb MD The patient is a 60-year-old male with a past medical history including hyperlipidemia and BPH, who presents to the emergency department with the above symptoms. He reports that 3 weeks ago he was bit by a tick, and then 12 hours after that developed initial symptoms of an elevated temperature and generalized malaise. He has been having temperatures on and off since that time, but more consistently over the past 4 days, sometimes resistant to Tylenol. Because of worsening issues with temperatures, and dyspnea on exertion noted by his , he presents to the ED for assessment. In the emergency department, COVID-19 testing was negative, platelet count was 113, AST was 83, and D-dimer 1470. Chest x-ray showed fluffy infiltrates bilaterally, right greater than left, and CT angiography was negative for PE but did also show mild splenomegaly. Allergies Allergy/AdvReac Type Severity Reaction Status Date / Time No Known Allergies Allergy Verified 01/28/21 20:28 Home Medications Medication Instructions Recorded Confirmed Type atorvastatin 40 mg PO HS 01/28/21 01/28/21 History ferrous gluconate 324 mg PO HS 01/28/21 01/28/21 History tamsulosin 0.4 mg PO HS 01/28/21 01/28/21 History Past Med/Surg History Medical History (Updated 01/28/21 @ 22:45 by Андрей Stone MD) BPH w urinary obs/LUTS Hyperlipidemia Social History Smoking Status: Never smoker Feels Safe at Home: Yes Review of Systems Review of Systems: The patient denies chest pain, palpitations, lower extremity swelling, sore throat, chills, nausea, vomiting, diarrhea , constipation, abdominal pain, pelvic pain, blood in urine or stool, dysuria, urinary frequency or urgency, lightheadedness, dizziness, headache, memory loss, loss of consciousness, rash, abnormal bruising or bleeding, imbalance, focal weakness, numbness or tingling in arms or legs, back or neck pain, or night sweats. The review of systems is otherwise negative other than for that already noted above, and at least 10 systems have been reviewed. Physical Exam Physical Exam: The patient is awake, alert and oriented 3, well developed and well nourished, appears mildly diaphoretic, normocephalic and atraumatic, lying in bed and in no acute distress. HEENT--PERRL, EOMI, mucous membranes and oropharynx dry. Neck--supple. No JVD. No bruits. Thyroid normal, trachea midline, no adenopathy. Heart--normal S1 and S2. No murmurs, rubs or gallops. Lungs--few coarse breath sounds, right greater than left. No respiratory distress, no accessory muscle use. Abdomen--normal bowel sounds and soft. Nontender. Nondistended. Extremities--no cyanosis or clubbing. No edema. Dermatologic--normal skin turgor, normal color, no abnormal lymph nodes, no rash. Neurologic--cranial nerves II through XII grossly intact. Rheumatologic--normal range of motion. Psychiatric--normal affect. Results & Data Results & Data ([facility]) Vital Signs (Past 12 Hours) Vital Signs Temp Pulse Resp BP Pulse Ox 01/28/21 21:00 101 H 40 H 128/84 93 01/28/21 20:00 103 H 32 H 141/86 H 95 01/28/21 19:18 94 01/28/21 19:05 103 H 23 144/92 H 93 01/28/21 16:35 97.7 F 111 H 19 141/75 H 96 Laboratory Results Laboratory Results WBC 7.18 K/uL (4.8-10.8) 01/28/21 19:09 RBC 4.94 M/uL (4.7-6.1) 01/28/21 19:09 Hgb 13.9 g/dL (14.0-18.0) L 01/28/21 19:09 Hct 40.6 % (42-52) L 01/28/21 19:09 MCV 82.2 fL (80-100) 01/28/21 19:09 MCH 28.1 pg (25-34) 01/28/21 19:09 MCHC 34.2 g/dL (32-36) 01/28/21 19:09 RDW Std Deviation 41.2 fL (36.4-46.3) 01/28/21 19:09 RDW Coeff of Elaine 13.6 % (11.5-14.5) 01/28/21 19:09 Plt Count 113 K/uL (130-400) L 01/28/21 19:09 MPV 10.7 fL (7.4-10.4) H 01/28/21 19:09 Immature Gran % (Auto) 0.3 % 01/28/21 19:09 Neut % (Auto) 61.8 % 01/28/21 19:09 Lymph % (Auto) 26.3 % 01/28/21 19:09 [place] % (Auto) 10.9 % 01/28/21 19:09 Eos % (Auto) 0.0 % 01/28/21 19:09 Baso % (Auto) 0.7 % 01/28/21 19:09 Neut # (Auto) 4.44 K/uL (1.4-6.5) 01/28/21 19:09 Lymph # (Auto) 1.89 K/uL (1.2-3.4) 01/28/21 19:09 [place] # (Auto) 0.78 K/uL (0.11-0.59) H 01/28/21 19:09 Eos # (Auto) 0.00 K/uL (0-0.5) 01/28/21 19:09 Baso # (Auto) 0.05 K/uL (0-0.2) 01/28/21 19:09 Immature Gran # (Auto) 0.02 K/uL (0.00-0.02) 01/28/21 19:09 D-Dimer 1470 ug/L FEU (0-500) H* 01/28/21 19:09 Sodium 132 mmol/L (136-145) L 01/28/21 19:09 Potassium 3.6 mmol/L (3.5-5.1) 01/28/21 19:09 Chloride 100 mmol/L (98-107) 01/28/21 19:09 Carbon Dioxide 25 mmol/L (21-32) 01/28/21 19:09 Anion Gap 8.0 (3-11) 01/28/21 19:09 BUN 15 mg/dl (7-18) 01/28/21 19:09 Creatinine 0.98 mg/dl (0.6-1.4) 01/28/21 19:09 Est Cr Clr Drug Dosing 97.2 ml/min 01/28/21 19:09 Est GFR ( Amer) 97.4 01/28/21 19:09 Est GFR (Non-Af Amer) 84.1 01/28/21 19:09 BUN/Creatinine Ratio 15.3 (10-20) 01/28/21 19:09 Glucose 127 mg/dl (70-99) H 01/28/21 19:09 Lactate 1.5 mmol/L (0.4-2.0) 01/28/21 19:09 Calcium 8.5 mg/dl (8.5-10.1) 01/28/21 19:09 Total Bilirubin 1.3 mg/dl (0.2-1) H 01/28/21 19:09 AST 83 U/L (15-37) H 01/28/21 19:09 ALT 73 U/L (12-78) 01/28/21 19:09 Alkaline Phosphatase 131 U/L (45-117) H 01/28/21 19:09 Troponin I < 0.015 ng/ml (0-0.045) 01/28/21 19:09 Total Protein 7.5 gm/dl (6.4-8.2) 01/28/21 19:09 Albumin 3.2 gm/dl (3.4-5.0) L 01/28/21 19:09 Globulin 4.3 gm/dl (2.5-4.0) H 01/28/21 19:09 Albumin/Globulin Ratio 0.7 (0.9-2) L 01/28/21 19:09 Lipase 136 U/L (73-393) 01/28/21 19:09 Procalcitonin 0.40 ng/ml (0-0.5) 01/28/21 19:09 Urine Color Dark Yellow 01/28/21 19:09 Urine Appearance Clear (Clear) 01/28/21 19:09 Urine pH 6.0 (4.5-7.5) 01/28/21 19:09 Ur Specific [place] 1.023 (1.000-1.030) 01/28/21 19:09 Urine Protein 2+ (Negative) H 01/28/21 19:09 Urine Glucose (UA) Negative (Negative) 01/28/21 19:09 Urine Ketones Negative (Negative) 01/28/21 19:09 Urine Blood 3+ (Negative) H 01/28/21 19:09 Urine Nitrite Negative (Negative) 01/28/21 19:09 Urine Bilirubin 1+ (Negative) H 01/28/21 19:09 Urine Urobilinogen Positive (Negative) H 01/28/21 19:09 Ur Leukocyte Esterase Negative (Negative) 01/28/21 19:09 Urine WBC (Auto) 1-5 /hpf (0-5) 01/28/21 19:09 Urine RBC (Auto) 5-10 /hpf (0-4) H 01/28/21 19:09 U Hyaline Cast (Auto) 1-5 /lpf (0-5) 01/28/21 19:09 U Epithel Cells (Auto) 10-20 /lpf (0-5) H 01/28/21 19:09 Urine Bacteria (Auto) Negative (Negative) 01/28/21 19:09 Lyme Disease IgG Ab Positive (Negative) A 01/28/21 19:09 Lyme Disease IgM Ab Positive (Negative) A 01/28/21 19:09 COVID-19 Eval Order CovFluRsv at [facility] 01/28/21 19:15 SARS-CoV-2 (PCR) NEGATIVE (Negative) 01/28/21 19:15 Influenza Type A (PCR) Negative (Neg) 01/28/21 19:15 Influenza Type B (PCR) Negative (Neg) 01/28/21 19:15 RSV (RT-PCR) Negative (Neg) 01/28/21 19:15 Impressions Chest X-Ray 01/28/21 18:54 XR chest 1V portable CLINICAL HISTORY: Atypical chest pain. COMPARISON STUDY: Chest radiograph May 25, 2017. FINDINGS: Lung volumes are normal. There is no pneumothorax or pleural effusion. There is no consolidation or evidence for pulmonary edema. There is mild c ardiomegaly. IMPRESSION: 1. No acute cardiopulmonary findings. 2. Mild cardiomegaly. ACT 112: Negative or not required by law. Electronically signed by: Stefano Vega M.D. 01/28/2021 7:30 PM Chest CTA 01/28/21 19:53 CT ANGIOGRAPHY OF THE CHEST, PULMONARY EMBOLUS PROTOCOL CLINICAL HISTORY: +dd sob and fever COMPARISON STUDY: Chest radiograph May 25, 2017 and January 28, 2021. TECHNIQUE: Following IV administration of 119 mL of Optiray-320, helical axial images of the chest were obtained utilizing the pulmonary embolus protocol. Maximal intensity projections and sagittal and coronal reformats were viewed on an independent 3D workstation. IV contrast was administered without complication. Automated exposure control was utilized for the study. A dose lowering technique was utilized adhering to the principles of ALARA. CT DOSE: 544.59 mGy.cm FINDINGS: No pulmonary emboli are identified. There is no thoracic aortic dissection. The heart is mildly enlarged. Trace bilateral pleural effusions are noted. There is no pneumothorax. No enlarged axillary, mediastinal or hilar lymph nodes are present. Note is made of a low attenuation 2.8 cm left lobe thyroid nodule. Central airways are patent. No consolidation is identified to suggest pneumonia. Minimal subpleural groundglass opacities reflect atelectasis. There is subtle interlobular septal thickening. A few hepatic lesions favor cysts. Mild splenomegaly is partially imaged. IMPRESSION: 1. No pulmonary emboli identified. 2. Mild cardiomegaly with trace bilateral pleural effusions and minimal interstitial pulmonary edema. 3. Mild splenomegaly, partially imaged on this exam. ACT 112: Negative or not required by law. Electronically signed by: Stefano Vega M.D. 01/28/2021 8:25 PM Code Status & VTE Plan Code Status Full code VTE Prophylaxis Plan VTE Prophylaxis will be ordered: Yes PG Care Time/CCT Total # of Minutes Spent Total Time Spent with Patient: Total time spent is greater than 50% in coordination of care (as documented) at patient's floor/unit and/or counseling patient: Coding Level of Care Code 39958 Initial Inpt Care Lvl 3 Diagnoses Febrile illness R50.9 BPH w urinary obs/LUTS N40.1; N13.8 Hyperlipidemia E78.5 Transaminitis R74.01 Thrombocytopenia D69.6 Elevated d-dimer R79.89 Bronchitis J40 Splenomegaly R16.1
[2021-01-28] MEDS ORDERED: TAMSULOSIN HCL 0.4 MG CAP PO STA (22:07)
--- NOTE | 2021-01-28 23:48 | History & Physical Report ---
Date of Service January 28, 2021 History of Present Illness Primary Care Provider: Adair Kolb MD Allergies Allergy/AdvReac Type Severity Reaction Status Date / Time No Known Allergies Allergy Verified 01/28/21 20:28 Home Medications Medication Instructions Recorded Confirmed Type atorvastatin 40 mg PO HS 01/28/21 01/28/21 History ferrous gluconate 324 mg PO HS 01/28/21 01/28/21 History tamsulosin 0.4 mg PO HS 01/28/21 01/28/21 History Past Med/Surg History Medical History (Updated 01/28/21 @ 23:37 by Duc Flood DO) BPH w urinary obs/LUTS Hyperlipidemia Social History Smoking Status: Never smoker Feels Safe at Home: Yes Results & Data Results & Data ([facility]) Vital Signs (Past 12 Hours) Vital Signs Temp Pulse Resp BP Pulse Ox 01/28/21 23:00 91 H 28 H 127/78 92 01/28/21 22:00 100 H 39 H 133/81 92 01/28/21 21:00 101 H 40 H 128/84 93 01/28/21 20:00 103 H 32 H 141/86 H 95 01/28/21 19:18 94 01/28/21 19:05 103 H 23 144/92 H 93 01/28/21 16:35 97.7 F 111 H 19 141/75 H 96 Code Status & VTE Plan VTE Prophylaxis Plan VTE Prophylaxis will be ordered: Yes PG Care Time/CCT Total # of Minutes Spent Total Time Spent with Patient: Total time spent is greater than 50% in coordination of care (as documented) at patient's floor/unit and/or counseling patient: Coding
[2021-01-29] MEDS ORDERED: ONDANSETRON INJ 2 MG/ML 2 ML VIAL IV PRN (00:18)
[2021-01-29] MEDS ORDERED: ACETAMINOPHEN 325 MG TAB PO PRN (00:18)
[2021-01-29] MEDS: ENOXAPARIN INJ 40 MG/0.4 ML SYR SQ SCH (01:10)
[2021-01-29] MEDS: NSS + 20MEQ KCL 20 MEQ/1,000 ML BAG IV SCH ×2 (01:11→06:17)
[2021-01-29] MEDS ORDERED: levoFLOXacin/D5W 500 MG/100 ML BAG IV SCH (02:00)
[2021-01-29] MEDS ORDERED: ALBUT/IPRATROP 3MG/0.5MG NEB 3 ML VIAL NEB SCH (07:00)
[2021-01-29 07:02] LABS: Basophils # (auto) 0.01 K/uL (0-0.2); Basophils % (auto) 0.2 %; Hematocrit (blood only) 38.8 % (42-52); Hemoglobin 13.3 g/dL (14.0-18.0); Immature Granulocytes # (auto) 0.02 K/uL (0.00-0.02); Immature Granulocytes % (auto) 0.4 %; Lymphocytes # (auto) 1.53 K/uL (1.2-3.4); Lymphocytes % (auto) 26.9 %; Mean Corpuscular Hemoglobin 28.4 pg (25-34); Mean Corpuscular Hgb Conc 34.3 g/dL (32-36); Mean Corpuscular Volume 82.7 fL (80-100); Mean Platelet Volume 10.6 fL (7.4-10.4); Monocytes % (auto) 8.8 %; Neutrophils # (auto) 3.63 K/uL (1.4-6.5); Neutrophils % (auto) 63.7 %; Platelet Count 116 K/uL (130-400); RDW Standard Deviation 42.3 fL (36.4-46.3); Red Blood Count 4.69 M/uL (4.7-6.1); White Blood Count 5.69 K/uL (4.8-10.8)
[2021-01-29 07:28] LABS: Albumin Level 2.8 gm/dl (3.4-5.0); BUN Creatinine Ratio 14.4 (10-20); Calcium 8.1 mg/dl (8.5-10.1); Creatinine Clr Calc Pharmacy 128.7 ml/min
[2021-01-29 07:42] LABS: Albumin Globulin Ratio 0.7 (0.9-2); Bilirubin,Total 0.7 mg/dl (0.2-1); Globulin 4.1 gm/dl (2.5-4.0); Total Protein 6.9 gm/dl (6.4-8.2)
--- NOTE | 2021-01-29 07:58 | Hospitalist Progress Note ---
Date of Service January 29, 2021 Assessment & Plan (1) Anaplasmosis: * Combination of general symptoms, febrile illness, elevated AST, low platelets, mild splenomegaly is most consistent with anaplasmosis rather than Lyme disease * Lyme IgG and IgM positive -- WB pending * Anaplasmosis smear + for inclusion bodies * Continues on Doxycycline but will discontinue Levaquin/Ceftriaxone * Bcx ngtd -- monitor * afebrile since admission * Continue to monitor --> consider switch to PO Doxy tomorrow (rx to be sent to [facility]) * Labs in AM (2) Febrile illness: * Febrile illness- * Main differential is bronchitis, Lyme disease, anaplasmosis, prostatitis and others * COVID-19 testing is negative * Combination of general symptoms, febrile illness, elevated AST, low platelets, mild splenomegaly is most consistent with anaplasmosis rather than Lyme disea se -- see above * Empiric treatment for all above with ceftriaxone 2 g IV daily and levofloxacin 500 mg IV daily --> d/c Levaquin and Rocephin and continuing on Doxy alone. * WBC, afebrile since admission (3) BPH w urinary obs/LUTS: * Continue tamsulosin 0.4 mg p.o. bedtime. * We will follow urinalysis urine culture and sensitivity -- UA not appearing infected * Continue to monitor UO -- acceptable 0.68ml/kg/hr * UO acceptable (4) Hyperlipidemia: * Continue atorvastatin (5) Transaminitis: * AST 83, total bilirubin 1.3, albumin 3.2 --> improving Tbili 0.7, AST 70, ALT 62, alk phos 110 * Continue to monitor (6) Thrombocytopenia: * Platelets 113 upon admission --> 116 (7) Elevated d-dimer: * CT angiography negative for PE (8) Bronchitis: * Placed on ceftriaxone 2 g IV daily, levofloxacin 500 mg IV daily. * Duonebs every 4 hours while awake and every 2 hours when necessary. * 93% on RA -- lungs clear, duonebs changed to prn (9) Splenomegaly: * Monitor platelet levels Dispo: continued inpatient stay possible d/c tomorrow on PO Doxy as above Admission and Anticipated Discharge Date Admission Date: January 28, 2021 Subjective Patient evaluated this morning. Feeling much better. Eating/drinking without issue. Still with slight cough but overall improved. No shortness of breath. No fever, chills, chest pain, abdominal pain, nausea or vomiting or dysuria at this time. Discussed + Anaplasmosis and will continue on Doxycycline alone with hopeful d/c tomorrow. Rx to be sent to [facility] Questions/concerns addressed at this time. Review of Systems Review of Systems: All systems reviewed & are unremarkable except as noted in HPI & below Physical Exam Constitutional: WD/WN, vitals as above cooperative and comfortable; no acute distress Eyes: + anicteric sclerae and PERRL ENMT: slightly dry mm --> improving Neck: trachea midline, no thyromegaly Respiratory: normal respiratory effort, lungs clear to auscultation (faint coarse breath sounds R>L) Auscultation: no wheezes Cardiovascular: RRR, no murmur, no edema Gastrointestinal (Abdomen): normal bowel sounds, soft, nontender, no hepatosplenomegaly Musculoskeletal: no cyanosis or clubbing, extremities motor strength 5/5 Skin: warm, moist Neurologic: patellar DTR's 2+ bilat, sensation intact and PERRL, EOMI, accommodation nl, no face palsy, no dysarthria Psychiatric: A+Ox3, euthymic affect Results & Data Results & Data ([facility] [place]) Vital Signs (Past 12 Hours) Vital Signs Temp Pulse Pulse Resp BP BP Pulse Ox 01/29/21 07:35 36.8 C 76 18 118/76 93 01/29/21 07:20 82 16 96 01/29/21 07:00 94 H 01/29/21 02:16 86 01/29/21 00:30 37.4 C 89 18 114/73 92 01/28/21 23:00 91 H 28 H 127/78 92 01/28/21 22:00 100 H 39 H 133/81 92 01/28/21 21:00 101 H 40 H 128/84 93 01/28/21 20:00 103 H 32 H 141/86 H 95 Laboratory Results 01/29/21 01/29/21 01/28/21 Range/Units 06:34 06:34 19:15 WBC 5.69 (4.8-10.8) K/uL RBC 4.69 L (4.7-6.1) M/uL Hgb 13.3 L (14.0-18.0) g/dL Hct 38.8 L (42-52) % MCV 82.7 (80-100) fL MCH 28.4 (25-34) pg MCHC 34.3 (32-36) g/dL RDW Std Deviation 42.3 (36.4-46.3) fL RDW Coeff of Elaine 14.0 (11.5-14.5) % Plt Count 116 L (130-400) K/uL MPV 10.6 H (7.4-10.4) fL Immature Gran % (Auto) 0.4 % Neut % (Auto) 63.7 % Lymph % (Auto) 26.9 % [place] % (Auto) 8.8 % Eos % (Auto) 0.0 % Baso % (Auto) 0.2 % Neut # (Auto) 3.63 (1.4-6.5) K/uL Lymph # (Auto) 1.53 (1.2-3.4) K/uL [place] # (Auto) 0.50 (0.11-0.59) K/uL Eos # (Auto) 0.00 (0-0.5) K/uL Baso # (Auto) 0.01 (0-0.2) K/uL Immature Gran # (Auto) 0.02 (0.00-0.02) K/uL D-Dimer (0-500) ug/L FEU Sodium 138 (136-145) mmol/L Potassium 4.0 (3.5-5.1) mmol/L Chloride 107 (98-107) mmol/L Carbon Dioxide 24 (21-32) mmol/L Anion Gap 7.0 (3-11) BUN 11 (7-18) mg/dl Creatinine 0.74 (0.6-1.4) mg/dl Est Cr Clr Drug Dosing 128.7 ml/min Est GFR ( Amer) 117.0 Est GFR (Non-Af Amer) 101.0 BUN/Creatinine Ratio 14.4 (10-20) Glucose 124 H (70-99) mg/dl Lactate (0.4-2.0) mmol/L Calcium 8.1 L (8.5-10.1) mg/dl Total Bilirubin 0.7 D (0.2-1) mg/dl AST 70 H (15-37) U/L ALT 62 (12-78) U/L Alkaline Phosphatase 110 (45-117) U/L Troponin I (0-0.045) ng/ml Total Protein 6.9 (6.4-8.2) gm/dl Albumin 2.8 L (3.4-5.0) gm/dl Globulin 4.1 H (2.5-4.0) gm/dl Albumin/Globulin Ratio 0.7 L (0.9-2) Lipase (73-393) U/L Procalcitonin (0-0.5) ng/ml Urine Color Urine Appearance (Clear) Urine pH (4.5-7.5) Ur Specific [place] (1.000-1.030) Urine Protein (Negative) Urine Glucose (UA) (Negative) Urine Ketones (Negative) Urine Blood (Negative) Urine Nitrite (Negative) Urine Bilirubin (Negative) Urine Urobilinogen (Negative) Ur Leukocyte Esterase (Negative) Urine WBC (Auto) (0-5) /hpf Urine RBC (Auto) (0-4) /hpf U Hyaline Cast (Auto) (0-5) /lpf U Epithel Cells (Auto) (0-5) /lpf Urine Bacteria (Auto) (Negative) Anaplasma Smear Anaplasma Comment Lyme Disease IgG Ab (Negative) Lyme IgG (Western Blot) Lyme IgG 18 kDa Band Lyme IgG 23 kDa Band Lyme IgG 28 kDa Band Lyme IgG 30 kDa Band Lyme IgG 39 kDa Band Lyme IgG 41 kDa Band Lyme IgG 45 kDa Band Lyme IgG 58 kDa Band Lyme IgG 66 kDa Band Lyme IgG 93 kDa Band Lyme IgM Ab (WB) Lyme Disease IgM Ab (Negative) Lyme IgM 23 kDa Band Lyme IgM 39 kDa Band Lyme IgM 41 kDa Band COVID-19 Eval Order SARS-CoV-2 (PCR) NEGATIVE (Negative) Influenza Type A (PCR) Negative (Neg) Influenza Type B (PCR) Negative (Neg) RSV (RT-PCR) Negative (Neg) 01/28/21 01/28/21 01/28/21 Range/Units 19:15 19:09 19:09 WBC (4.8-10.8) K/uL RBC (4.7-6.1) M/uL Hgb (14.0-18.0) g/dL Hct (42-52) % MCV (80-100) fL MCH (25-34) pg MCHC (32-36) g/dL RDW Std Deviation (36.4-46.3) fL RDW Coeff of Elaine (11.5-14.5) % Plt Count (130-400) K/uL MPV (7.4-10.4) fL Immature Gran % (Auto) % Neut % (Auto) % Lymph % (Auto) % [place] % (Auto) % Eos % (Auto) % Baso % (Auto) % Neut # (Auto) (1.4-6.5) K/uL Lymph # (Auto) (1.2-3.4) K/uL [place] # (Auto) (0.11-0.59) K/uL Eos # (Auto) (0-0.5) K/uL Baso # (Auto) (0-0.2) K/uL Immature Gran # (Auto) (0.00-0.02) K/uL D-Dimer (0-500) ug/L FEU Sodium (136-145) mmol/L Potassium (3.5-5.1) mmol/L Chloride (98-107) mmol/L Carbon Dioxide (21-32) mmol/L Anion Gap (3-11) BUN (7-18) mg/dl Creatinine (0.6-1.4) mg/dl Est Cr Clr Drug Dosing ml/min Est GFR ( Amer) Est GFR (Non-Af Amer) BUN/Creatinine Ratio (10-20) Glucose (70-99) mg/dl Lactate (0.4-2.0) mmol/L Calcium (8.5-10.1) mg/dl Total Bilirubin (0.2-1) mg/dl AST (15-37) U/L ALT (12-78) U/L Alkaline Phosphatase (45-117) U/L Troponin I (0-0.045) ng/ml Total Protein (6.4-8.2) gm/dl Albumin (3.4-5.0) gm/dl Globulin (2.5-4.0) gm/dl Albumin/Globulin Ratio (0.9-2) Lipase (73-393) U/L Procalcitonin (0-0.5) ng/ml Urine Color Urine Appearance (Clear) Urine pH (4.5-7.5) Ur Specific [place] (1.000-1.030) Urine Protein (Negative) Urine Glucose (UA) (Negative) Urine Ketones (Negative) Urine Blood (Negative) Urine Nitrite (Negative) Urine Bilirubin (Negative) Urine Urobilinogen (Negative) Ur Leukocyte Esterase (Negative) Urine WBC (Auto) (0-5) /hpf Urine RBC (Auto) (0-4) /hpf U Hyaline Cast (Auto) (0-5) /lpf U Epithel Cells (Auto) (0-5) /lpf Urine Bacteria (Auto) (Negative) Anaplasma Smear Cancelled Anaplasma Comment Lyme Disease IgG Ab (Negative) Lyme IgG (Western Blot) Pending Lyme IgG 18 kDa Band Pending Lyme IgG 23 kDa Band Pending Lyme IgG 28 kDa Band Pending Lyme IgG 30 kDa Band Pending Lyme IgG 39 kDa Band Pending Lyme IgG 41 kDa Band Pending Lyme IgG 45 kDa Band Pending Lyme IgG 58 kDa Band Pending Lyme IgG 66 kDa Band Pending Lyme IgG 93 kDa Band Pending Lyme IgM Ab (WB) Pending Lyme Disease IgM Ab (Negative) Lyme IgM 23 kDa Band Pending Lyme IgM 39 kDa Band Pending Lyme IgM 41 kDa Band Pending COVID-19 Eval Order CovFluRsv at [facility] SARS-CoV-2 (PCR) (Negative) Influenza Type A (PCR) (Neg) Influenza Type B (PCR) (Neg) RSV (RT-PCR) (Neg) 01/28/21 01/28/21 01/28/21 Range/Units 19:09 19:09 19:09 WBC (4.8-10.8) K/uL RBC (4.7-6.1) M/uL Hgb (14.0-18.0) g/dL Hct (42-52) % MCV (80-100) fL MCH (25-34) pg MCHC (32-36) g/dL RDW Std Deviation (36.4-46.3) fL RDW Coeff of Elaine (11.5-14.5) % Plt Count (130-400) K/uL MPV (7.4-10.4) fL Immature Gran % (Auto) % Neut % (Auto) % Lymph % (Auto) % [place] % (Auto) % Eos % (Auto) % Baso % (Auto) % Neut # (Auto) (1.4-6.5) K/uL Lymph # (Auto) (1.2-3.4) K/uL [place] # (Auto) (0.11-0.59) K/uL Eos # (Auto) (0-0.5) K/uL Baso # (Auto) (0-0.2) K/uL Immature Gran # (Auto) (0.00-0.02) K/uL D-Dimer (0-500) ug/L FEU Sodium (136-145) mmol/L Potassium (3.5-5.1) mmol/L Chloride (98-107) mmol/L Carbon Dioxide (21-32) mmol/L Anion Gap (3-11) BUN (7-18) mg/dl Creatinine (0.6-1.4) mg/dl Est Cr Clr Drug Dosing ml/min Est GFR ( Amer) Est GFR (Non-Af Amer) BUN/Creatinine Ratio (10-20) Glucose (70-99) mg/dl Lactate 1.5 (0.4-2.0) mmol/L Calcium (8.5-10.1) mg/dl Total Bilirubin (0.2-1) mg/dl AST (15-37) U/L ALT (12-78) U/L Alkaline Phosphatase (45-117) U/L Troponin I (0-0.045) ng/ml Total Protein (6.4-8.2) gm/dl Albumin (3.4-5.0) gm/dl Globulin (2.5-4.0) gm/dl Albumin/Globulin Ratio (0.9-2) Lipase (73-393) U/L Procalcitonin (0-0.5) ng/ml Urine Color Dark Yellow Urine Appearance Clear (Clear) Urine pH 6.0 (4.5-7.5) Ur Specific [place] 1.023 (1.000-1.030) Urine Protein 2+ H (Negative) Urine Glucose (UA) Negative (Negative) Urine Ketones Negative (Negative) Urine Blood 3+ H (Negative) Urine Nitrite Negative (Negative) Urine Bilirubin 1+ H (Negative) Urine Urobilinogen Positive H (Negative) Ur Leukocyte Esterase Negative (Negative) Urine WBC (Auto) 1-5 (0-5) /hpf Urine RBC (Auto) 5-10 H (0-4) /hpf U Hyaline Cast (Auto) 1-5 (0-5) /lpf U Epithel Cells (Auto) 10-20 H (0-5) /lpf Urine Bacteria (Auto) Negative (Negative) Anaplasma Smear Anaplasma Comment Lyme Disease IgG Ab Positive A (Negative) Lyme IgG (Western Blot) Lyme IgG 18 kDa Band Lyme IgG 23 kDa Band Lyme IgG 28 kDa Band Lyme IgG 30 kDa Band Lyme IgG 39 kDa Band Lyme IgG 41 kDa Band Lyme IgG 45 kDa Band Lyme IgG 58 kDa Band Lyme IgG 66 kDa Band Lyme IgG 93 kDa Band Lyme IgM Ab (WB) Lyme Disease IgM Ab Positive A (Negative) Lyme IgM 23 kDa Band Lyme IgM 39 kDa Band Lyme IgM 41 kDa Band COVID-19 Eval Order SARS-CoV-2 (PCR) (Negative) Influenza Type A (PCR) (Neg) Influenza Type B (PCR) (Neg) RSV (RT-PCR) (Neg) 01/28/21 01/28/21 01/28/21 Range/Units 19:09 19:09 19:09 WBC (4.8-10.8) K/uL RBC (4.7-6.1) M/uL Hgb (14.0-18.0) g/dL Hct (42-52) % MCV (80-100) fL MCH (25-34) pg MCHC (32-36) g/dL RDW Std Deviation (36.4-46.3) fL RDW Coeff of Elaine (11.5-14.5) % Plt Count (130-400) K/uL MPV (7.4-10.4) fL Immature Gran % (Auto) % Neut % (Auto) % Lymph % (Auto) % [place] % (Auto) % Eos % (Auto) % Baso % (Auto) % Neut # (Auto) (1.4-6.5) K/uL Lymph # (Auto) (1.2-3.4) K/uL [place] # (Auto) (0.11-0.59) K/uL Eos # (Auto) (0-0.5) K/uL Baso # (Auto) (0-0.2) K/uL Immature Gran # (Auto) (0.00-0.02) K/uL D-Dimer 1470 H* (0-500) ug/L FEU Sodium 132 L (136-145) mmol/L Potassium 3.6 (3.5-5.1) mmol/L Chloride 100 (98-107) mmol/L Carbon Dioxide 25 (21-32) mmol/L Anion Gap 8.0 (3-11) BUN 15 (7-18) mg/dl Creatinine 0.98 (0.6-1.4) mg/dl Est Cr Clr Drug Dosing 97.2 ml/min Est GFR ( Amer) 97.4 Est GFR (Non-Af Amer) 84.1 BUN/Creatinine Ratio 15.3 (10-20) Glucose 127 H (70-99) mg/dl Lactate (0.4-2.0) mmol/L Calcium 8.5 (8.5-10.1) mg/dl Total Bilirubin 1.3 H (0.2-1) mg/dl AST 83 H (15-37) U/L ALT 73 (12-78) U/L Alkaline Phosphatase 131 H (45-117) U/L Troponin I < 0.015 (0-0.045) ng/ml Total Protein 7.5 (6.4-8.2) gm/dl Albumin 3.2 L (3.4-5.0) gm/dl Globulin 4.3 H (2.5-4.0) gm/dl Albumin/Globulin Ratio 0.7 L (0.9-2) Lipase 136 (73-393) U/L Procalcitonin 0.40 (0-0.5) ng/ml Urine Color Urine Appearance (Clear) Urine pH (4.5-7.5) Ur Specific [place] (1.000-1.030) Urine Protein (Negative) Urine Glucose (UA) (Negative) Urine Ketones (Negative) Urine Blood (Negative) Urine Nitrite (Negative) Urine Bilirubin (Negative) Urine Urobilinogen (Negative) Ur Leukocyte Esterase (Negative) Urine WBC (Auto) (0-5) /hpf Urine RBC (Auto) (0-4) /hpf U Hyaline Cast (Auto) (0-5) /lpf U Epithel Cells (Auto) (0-5) /lpf Urine Bacteria (Auto) (Negative) Anaplasma Smear Anaplasma Comment Lyme Disease IgG Ab (Negative) Lyme IgG (Western Blot) Lyme IgG 18 kDa Band Lyme IgG 23 kDa Band Lyme IgG 28 kDa Band Lyme IgG 30 kDa Band Lyme IgG 39 kDa Band Lyme IgG 41 kDa Band Lyme IgG 45 kDa Band Lyme IgG 58 kDa Band Lyme IgG 66 kDa Band Lyme IgG 93 kDa Band Lyme IgM Ab (WB) Lyme Disease IgM Ab (Negative) Lyme IgM 23 kDa Band Lyme IgM 39 kDa Band Lyme IgM 41 kDa Band COVID-19 Eval Order SARS-CoV-2 (PCR) (Negative) Influenza Type A (PCR) (Neg) Influenza Type B (PCR) (Neg) RSV (RT-PCR) (Neg) 01/28/21 Range/Units 19:09 WBC 7.18 (4.8-10.8) K/uL RBC 4.94 (4.7-6.1) M/uL Hgb 13.9 L (14.0-18.0) g/dL Hct 40.6 L (42-52) % MCV 82.2 (80-100) fL MCH 28.1 (25-34) pg MCHC 34.2 (32-36) g/dL RDW Std Deviation 41.2 (36.4-46.3) fL RDW Coeff of Elaine 13.6 (11.5-14.5) % Plt Count 113 L (130-400) K/uL MPV 10.7 H (7.4-10.4) fL Immature Gran % (Auto) 0.3 % Neut % (Auto) 61.8 % Lymph % (Auto) 26.3 % [place] % (Auto) 10.9 % Eos % (Auto) 0.0 % Baso % (Auto) 0.7 % Neut # (Auto) 4.44 (1.4-6.5) K/uL Lymph # (Auto) 1.89 (1.2-3.4) K/uL [place] # (Auto) 0.78 H (0.11-0.59) K/uL Eos # (Auto) 0.00 (0-0.5) K/uL Baso # (Auto) 0.05 (0-0.2) K/uL Immature Gran # (Auto) 0.02 (0.00-0.02) K/uL D-Dimer (0-500) ug/L FEU Sodium (136-145) mmol/L Potassium (3.5-5.1) mmol/L Chloride (98-107) mmol/L Carbon Dioxide (21-32) mmol/L Anion Gap (3-11) BUN (7-18) mg/dl Creatinine (0.6-1.4) mg/dl Est Cr Clr Drug Dosing ml/min Est GFR ( Amer) Est GFR (Non-Af Amer) BUN/Creatinine Ratio (10-20) Glucose (70-99) mg/dl Lactate (0.4-2.0) mmol/L Calcium (8.5-10.1) mg/dl Total Bilirubin (0.2-1) mg/dl AST (15-37) U/L ALT (12-78) U/L Alkaline Phosphatase (45-117) U/L Troponin I (0-0.045) ng/ml Total Protein (6.4-8.2) gm/dl Albumin (3.4-5.0) gm/dl Globulin (2.5-4.0) gm/dl Albumin/Globulin Ratio (0.9-2) Lipase (73-393) U/L Procalcitonin (0-0.5) ng/ml Urine Color Urine Appearance (Clear) Urine pH (4.5-7.5) Ur Specific [place] (1.000-1.030) Urine Protein (Negative) Urine Glucose (UA) (Negative) Urine Ketones (Negative) Urine Blood (Negative) Urine Nitrite (Negative) Urine Bilirubin (Negative) Urine Urobilinogen (Negative) Ur Leukocyte Esterase (Negative) Urine WBC (Auto) (0-5) /hpf Urine RBC (Auto) (0-4) /hpf U Hyaline Cast (Auto) (0-5) /lpf U Epithel Cells (Auto) (0-5) /lpf Urine Bacteria (Auto) (Negative) Anaplasma Smear See Comment A Anaplasma Comment Pending Lyme Disease IgG Ab (Negative) Lyme IgG (Western Blot) Lyme IgG 18 kDa Band Lyme IgG 23 kDa Band Lyme IgG 28 kDa Band Lyme IgG 30 kDa Band Lyme IgG 39 kDa Band Lyme IgG 41 kDa Band Lyme IgG 45 kDa Band Lyme IgG 58 kDa Band Lyme IgG 66 kDa Band Lyme IgG 93 kDa Band Lyme IgM Ab (WB) Lyme Disease IgM Ab (Negative) Lyme IgM 23 kDa Band Lyme IgM 39 kDa Band Lyme IgM 41 kDa Band COVID-19 Eval Order SARS-CoV-2 (PCR) (Negative) Influenza Type A (PCR) (Neg) Influenza Type B (PCR) (Neg) RSV (RT-PCR) (Neg) PG Care Time/CCT Total # of Minutes Spent Total Time Spent with Patient: Total time spent is greater than 50% in coordination of care (as documented) at patient's floor/unit and/or counseling patient: Coding Level of Care Code 31432 Subseq Hosp Care Lvl 3 Diagnoses Anaplasmosis A77.49 Febrile illness R50.9 BPH w urinary obs/LUTS N40.1; N13.8 Hyperlipidemia E78.5 Transaminitis R74.01 Thrombocytopenia D69.6 Elevated d-dimer R79.89 Bronchitis J40 Splenomegaly R16.1
[2021-01-29] MEDS: DOXYCYCLINE HYCLATE 100 MG in DEXTROSE 5% 100 ML IV SCH ×2 (08:46→20:41)
[2021-01-29] MEDS ORDERED: ALBUT/IPRATROP 3MG/0.5MG NEB 3 ML VIAL NEB PRN (09:27)
[2021-01-29 10:07] LABS: Anaplasmosis Smear(Rpt to DOH) Pos for Anaplasma
[2021-01-29] MEDS ORDERED: TAMSULOSIN HCL 0.4 MG CAP PO SCH (21:00)
[2021-01-29] MEDS ORDERED: FERROUS GLUCONATE 324 MG TAB PO SCH (21:00)
[2021-01-29] MEDS ORDERED: ATORVASTATIN 40 MG TAB PO SCH (21:00)
[2021-01-29] MEDS ORDERED: cefTRIAXone SODIUM 2,000 MG in DEXTROSE 5% 50 ML IV SCH (21:00)
--- NOTE | 2021-01-30 06:10 | Electrocardiogram Report ---
Test Reason : Blood Pressure : / mmHG Vent. Rate : 105 BPM Atrial Rate : 105 BPM P-R Int : 162 ms QRS Dur : 090 ms QT Int : 316 ms P-R-T Axes : 031 011 050 degrees QTc Int : 417 ms Sinus tachycardia Possible Left atrial enlargement Borderline ECG When compared with ECG of 25-MAY-2017 08:36, Vent. rate has increased BY 44 BPM Confirmed by Gary Alexandra ([id number] on 01/30/2021 6:09:31 AM Referred By: Adair Kolb Confirmed By:Gary Alexandra
[2021-01-30 07:21] LABS: Mean Corpuscular Hemoglobin 28.3 pg (25-34); Mean Corpuscular Hgb Conc 34.2 g/dL (32-36); Mean Corpuscular Volume 82.8 fL (80-100); Mean Platelet Volume 10.2 fL (7.4-10.4); Platelet Count 136 K/uL (130-400); RDW Coefficient of Variation 14.3 % (11.5-14.5); RDW Standard Deviation 43.2 fL (36.4-46.3); Red Blood Count 4.59 M/uL (4.7-6.1); White Blood Count 7.74 K/uL (4.8-10.8)
[2021-01-30 07:30] LABS: Prothrombin Time 10.4 Seconds (9.0-12.0)
[2021-01-30 08:02] LABS: Albumin Level 2.7 gm/dl (3.4-5.0); BUN Creatinine Ratio 17.4 (10-20); Calcium 8.1 mg/dl (8.5-10.1); Creatinine Clr Calc Pharmacy 103.1 ml/min; Est GFR (African American) 105.1; Est GFR (Non-African American) 90.7; Potassium 3.8 mmol/L (3.5-5.1)
[2021-01-30 08:04] LABS: Albumin Globulin Ratio 0.7 (0.9-2); Bilirubin,Total 0.6 mg/dl (0.2-1); Globulin 3.7 gm/dl (2.5-4.0); Total Protein 6.4 gm/dl (6.4-8.2)
[2021-01-30 08:38] LABS: ALC (manual) 4.71 K/uL (1.2-3.4); ANC (manual) 2.69 K/uL (1.4-6.5); Basophils # (manual) 0.07 K/uL (0-0.2); Basophils % (manual) 0.9 %; Echinocytes 1+; Lymphocytes # (manual) 2.29 K/uL (1.2-3.4); Lymphocytes % (manual) 29.6 %; Monocytes # (manual) 0.27 K/uL (0.11-0.59); Monocytes % (manual) 3.5 %; Neutrophils # (manual) 2.69 K/uL (1.4-6.5); Neutrophils % (manual) 34.7 %; Reactive Lymphocytes # (manual) 2.42 K/uL; Reactive Lymphocytes % (manual) 31.3 %
[2021-01-30] MEDS: DOXYCYCLINE HYCLATE 100 MG in DEXTROSE 5% 100 ML IV SCH (08:55)
[2021-01-30] MEDS: ENOXAPARIN INJ 40 MG/0.4 ML SYR SQ SCH (08:55)
--- NOTE | 2021-01-30 10:24 | Discharge Summary ---
Date of Service January 30, 2021 Admission HPI Per Admitting Provider The patient is a 60-year-old male with a past medical history including hyperlipidemia and BPH, who presents to the emergency department with the above symptoms. He reports that 3 weeks ago he was bit by a tick, and then 12 hours after that developed initial symptoms of an elevated temperature and generalized malaise. He has been having temperatures on and off since that time, but more consistently over the past 4 days, sometimes resistant to Tylenol. Because of worsening issues with temperatures, and dyspnea on exertion noted by his , he presents to the ED for assessment. In the emergency department, COVID-19 testing was negative, platelet count was 113, AST was 83, and D-dimer 1470. Chest x-ray showed fluffy infiltrates bilaterally, right greater than left, and CT angiography was negative for PE but did also show mild splenomegaly. Admission Exam Per Admitting Provider The patient is awake, alert and oriented 3, well developed and well nourished, appears mildly diaphoretic, normocephalic and atraumatic, lying in bed and in no acute distress. HEENT--PERRL, EOMI, mucous membranes and oropharynx dry. Neck--supple. No JVD. No bruits. Thyroid normal, trachea midline, no adenopathy. Heart--normal S1 and S2. No murmurs, rubs or gallops. Lungs--few coarse breath sounds, right greater than left. No respiratory distre ss, no accessory muscle use. Abdomen--normal bowel sounds and soft. Nontender. Nondistended. Extremities--no cyanosis or clubbing. No edema. Dermatologic--normal skin turgor, normal color, no abnormal lymph nodes, no rash. Neurologic--cranial nerves II through XII grossly intact. Rheumatologic--normal range of motion. Psychiatric--normal affect. Principal Diagnosis Anaplasmosis Discharge Exam General: A&Ox3. NAD. Cooperative. HEENT: Atraumatic, normocephalic. Pulm: CTAB A&P. -wheezes, -rales, -rhonchi. Symmetrical chest rise. No increase work of breathing. No respiratory distress. Cardiac: RRR, -mrg. Radial pulses intact and symmetrical. Abdominal: soft, non-tender, non-distended, BS x 4 Discharge Data Allergies Allergy/AdvReac Type Severity Reaction Status Date / Time No Known Allergies Allergy Verified 01/28/21 20:28 Consultations 01/28/21 21:13 ED Decision to Admit Stat Ordered Studies 01/28/21 19:53 CT angio chest PE protocol Stat Hospital Course (1) Anaplasmosis: Anaplasmosis Combination of general symptoms, febrile illness, elevated AST, low platelets, mild splenomegaly is most consistent with anaplasmosis rather than Lyme disease - Lyme IgG and IgM positive -- western blot pending - Anaplasmosis smear + for inclusion bodies - Initially started on Ceftriaxone/Levofloxacin on 01/28 and immediately transitioned to IV Doxycycline in the hospital - continue with Doxycycline 100mg PO BID x12 days (for total of 14 days) - Bcx ngtd -- monitor - f/u with PCP in 1 week BPH w urinary obs/LUTS - Continue tamsulosin 0.4 mg p.o. bedtime. Hyperlipidemia - Continue atorvastatin Transaminitis, resolving - AST 83 --> 70 --> 69, suspect 2/2 anaplasmosis - trend LFTs as outpatient Thrombocytopenia, resolving - plts 113 --> 116 --> 136, suspect 2/2 anaplasmosis - trend CBC as outpatient Cough - suspect postnasal drip vs viral URI - counseled on using PRN Flonase for symptoms - f/u with PCP as mentioned above (2) BPH w urinary obs/LUTS: (3) Hyperlipidemia: (4) Transaminitis: (5) Thrombocytopenia: (6) Viral URI with cough: (7) Splenomegaly: Total Time Total Time Spent Total Time Spent (In Minutes): <30 minutes Total Time Includes: Examination of the Patient, Discharge Planning and Medication Reconciliation Discharge Plan Discharge Items Patient Disposition: Home - Self-Care Reason For Visit: FEBRILE ILLNESS Discharge Diagnosis: Anaplasmosis Goals: You have been hospitalized for an acute medical problem. During your stay at [facility], we have made an effort to correct the problem that brought you to the hospital while keeping you as comfortable as possible. Medications were used to bring your condition under control and your discharge instructions will include directions for any medications you should take after leaving the hospital. Please make sure you see your Primary Care Provider as part of your follow up plan. Activity: Resume your previous activity Non-emergency contact: Primary Care Provider Call non-emergency contact if: you have any medication questions, your symptoms worsen and your pain is concerning for you Follow-up/Referrals: Adair Kolb MD [Primary Care Provider] - 02/05/21 11:00 am Diet: Heart Healthy Addtl Attending Provider Instructions: You have been hospitalized for febrile illness. It was discovered that you were positive for Lyme/Anaplasmosis and were treated with antibiotics and supportive care. You will be discharged on Doxycycline 100mg by mouth for another 12 days to complete a 14 day course. As discussed, please take this with a full glass of water to prevent esophagitis. Please follow up with your primary care provider in the next week to monitor your progress. Please return to the emergency department with worsening fever, abdominal pain, bleeding, chest pain, shortness of breath or for any other symptoms that are concerning. It has been a pleasure being a part of the medical team providing for you while you have been in the hospital. Take care. Pending Studies at Discharge: Yes Studies:: Blood cultures -- no growth to date Stand-Alone Forms: My [facility], Work/School Release (Inpt) Medications and DC Order Prescriptions: New doxycycline hyclate 100 mg capsule 100 mg PO BID 12 Days Qty: 24 RF: 0 Continued atorvastatin 40 mg tablet 40 mg PO HS RF: 0 tamsulosin 0.4 mg capsule 0.4 mg PO HS RF: 0 ferrous gluconate 324 mg (37.5 mg iron) tablet 324 mg PO HS RF: 0 Discharge Orders: Discharge Order (Routine); Ordered 01/30/21 Ordered By: Wilton Martinez/Other Patient Handouts: Eating Heart-Healthy Foods Admission Data Admit Date/Time: 01/28/21 22:02 Attending Provider: Duc Giles Admit Provider: Андрей Stone Primary Care Provider: Adair Kolb Other Providers: Rene Valenzuela Other Interventions: Discharge Summary Assessment (RN) Last Done: 01/30/21 13:12 Supervising Physician Co-Signing Physician Notes I personally examined the patient and verified all cee points of history and exam, discussed case, and agree with decision making with Dr Mora. feeling a good deal better. really feels up to going home. updated and explained dx's extensively. does have a cough, but no sob. vitals noted nad heent nc at mmm lungs clear to auscultation bilaterally no rales rhonchi or wheezes good effort. Skin shows no rashes no pallor or icterus. 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 Safe/stable for home on doxycycline. Educated extensively. Coughhe has clear lungs and normal O2 sats, I doubt there is true pulmonary pathology at play. I did discuss with the patient that he theoretically could also have babesiosis, and outlined what to watch for, particularly as far as any worsening in his syndrome, but more than likely this is just postnasal drip from the spring pollen coming outrecommended fluticasone nasal, close vigilance, close outpatient follow-up Stable for home Resident Activity Tracking Resident Involvement: Resident Care Provided Care Provided: Adult Hospital Medicine
--- NOTE | 2021-01-30 17:25 | Billing Data ---
Date of Service January 30, 2021 Coding Level of Care Code D/C Day Management <30 mins
[2021-01-31 01:46] LABS: 18KDIGG Band REACTIVE; 23KDIGG Band NON-REACTIVE; 23KDIGM Band REACTIVE; 28KDIGG Band NON-REACTIVE; 30KDIGG Band NON-REACTIVE; 39KDIGG Band NON-REACTIVE; 39KDIGM Band REACTIVE; 41KDIGG Band NON-REACTIVE; 41KDIGM Band REACTIVE; 45KDIGG Band NON-REACTIVE; 58KDIGG Band NON-REACTIVE; 66KDIGG Band NON-REACTIVE; 93KDIGG Band NON-REACTIVE; Lyme Antibodies, WB IgG NEGATIVE (NEGATIVE); Lyme Antibodies, WB IgM POSITIVE (NEGATIVE)
== END 2021-01-30 14:17 | disposition home or self-care (01) | DRG 869 ==
LOC: ED 16:31 → SUATTDRO 22:02 → 2N 22:02